=== PATIENT | female | born 1985 | race Caucasian/White ===

== ENCOUNTER 2016-08-13 22:02 | Inpatient (IN) ==
[2016-08-13] MEDS ORDERED: TORADOL IV ONE (22:26)
[2016-08-13] MEDS ORDERED: NS 1,000 ML IV ONE ×2 (22:26→23:21)
[2016-08-13] MEDS ORDERED: DILAUDID IV ONE (22:27)
[2016-08-13] MEDS ORDERED: ZOFRAN IV ONE (22:27)
[2016-08-13 22:54] LABS: MANUAL DIFF NEEDED? NO
[2016-08-13 22:54] LABS: BILIRUBIN URINE NEGATIVE (NEGATIVE); BLOOD URINE 1+ (NEGATIVE); GLUCOSE URINE NEGATIVE (NEGATIVE); LEUKOCYTES URINE 1+ (NEGATIVE); NITRITE URINE NEGATIVE (NEGATIVE); PH URINE 6.5; PROTEIN URINE NEGATIVE (NEGATIVE); SP GRAVITY URINE 1.015; UROBILINOGEN URINE NORMAL
[2016-08-13 22:55] LABS: CLARITY CLEAR (CLEAR); COLOR YELLOW
[2016-08-13 22:57] LABS: BASO% 0.2 % (0.0-0.8); EOS# 0.04 X1000 (0.0-0.7); EOS% 0.3 % (0.0-10.0); HEMATOCRIT 37.3 % (37.0-47.0); HEMOGLOBIN 12.9 g/dL (12.0-16.0); IMM GRAN# 0.04 X1000 (0.0-0.04); IMM GRAN% 0.3 % (0.0-0.5); LYMPH# 1.51 X1000 (1.2-3.4); LYMPH% 10.4 % (20.5-51.1); MCH 29.5 PG (27-31); MCHC 34.6 g/dL (33-37); MCV 85.2 FL (81-99); MONO# 1.61 X1000 (0.11-0.59); MONO% 11.1 % (1.7-9.3); MPV 9.3 FL (7.4-10.4); NEUT% 77.7 % (42.2-75.2); PLT 318 X1000 (130-400); RBC 4.38 XMIL (4.2-5.4)
[2016-08-13 23:13] LABS: AGAP 17; ALBUMIN 4.3 g/dL (3.5-5.0); ALKALINE PHOSPHATASE 58 U/L (32-104); BUN 11 mg/dL (8-22); CALCIUM 9.1 mg/dL (8.8-10.2); CHLORIDE 96 mmol/L (98-107); COSMO 268; GOT 12 U/L (10-30); GPT 12 U/L (10-36); POTASSIUM 3.7 mmol/L (3.5-5.1); SODIUM 134 mmol/L (136-145); TCO2 21 mmol/L (25-35)
[2016-08-13] MEDS ORDERED: ROCEPHIN 1 GM/NS 1 GM/50 ML IVPB IV ONE (23:17)
[2016-08-13 23:18] LABS: URINE WBC 20-40 /HPF (<10)
[2016-08-13 23:19] LABS: URINE CULTURE PL NEEDED? YES; URINE EPITHELIAL CELLS <10 /HPF (<10); URINE SOURCE CLEAN CATCH
[2016-08-13] MEDS ORDERED: TYLENOL PO ONE (23:28)
--- NOTE | 2016-08-13 23:28 | PROVIDER DOCUMENTATION ---
This chart was entered by Brittney Martínez Scribe, acting as scribe for Yunier Padilla MD. HPI-General Adult - General Chief Complaint: Flank Pain Stated Complaint: FLANK PAIN Time Seen by Provider: 08/13/16 22:16 Source: patient Allergies/Adverse Reactions: Patient Allergies Allergy/AdvReac Type Severity Reaction Status Date / Time No Known Allergies Allergy Verified 07/07/15 19:38 Home Medications: Home Medication List Medication Instructions Recorded Confirmed Last Taken Type NK [No Home Medications] 08/13/16 08/13/16 Unknown History - History of Present Illness -Gen Adult Nature of Presenting Problems: 30 Y/O F presents to ED with flank pain. Pt states she recently had an UTI at the beginning of the month and pain returned 4 days ago. Pt states that she has had flank pain for about 4 days with an headache radiating into her right ears. Pt states she had a fever onset today and Lower ABD pain on her right side. Location of Pain/Injury: reports: head, other (flank pain) Pain Radiation: reports: no radiation Quality of Pain: reports: aching Severity: reports: moderate Onset/Duration: reports: 4 days ago Timing: reports: still present Associated Symptoms: reports: back/neck pain, dizziness, EENT symptoms, fever/ chills. denies: sinus congestion/drainage, nausea, vomiting Similar Symptoms Previously?: Yes Recently seen or treated by another doctor?: Yes Review of Systems - Adult - REVIEW OF SYSTEMS - ADULT Constitutional: reports: fever. denies: chills Eyes: reports: no symptoms reported Ears, Nose, Mouth & Throat: reports: ear pain. denies: loose teeth, mouth/ dental pain Cardiovascular: reports: no symptoms reported Respiratory: denies: cough, shortness of breath Gastrointestinal: reports: abdominal pain. denies: diarrhea, nausea, vomiting Genitourinary: reports: flank pain Musculoskeletal: reports: no symptoms reported Integumentary: reports: no symptoms reported Neurological: reports: headache/migraines. denies: dizziness/vertigo, loss of balance Psychiatric: reports: no symptoms reported Endocrine: reports: no symptoms reported Hematologic/Lymphatic: reports: no symptoms reported Allergic/Immunologic: reports: no symptoms reported All Other Systems: Reviewed and Negative Past History - Adult - PAST MEDICAL HISTORY-ADULT Review of Records: reports: Old Records Reviewed, Nursing Assessment Review, Medications Reviewed, Social history reviewed & non-contributory. Major Childhood Illnesses: reports: denies history Obstetrical/Gynecological: reports: ectopic (hx 1 year after BTL) Genitourinary: reports: chronic UTI's - PRIOR SURGERIES/PROCEDURES Surgical/Procedure History: reports: BTL, tonsillectomy - IMMUNIZATION STATUS Childhood Immunizations: See Nurse Assessment Flu Vaccine: See Nurse Assessment - FAMILY HISTORY Family History: reviewed, not pertinent Physical Exam-General - CONSTITUTIONAL General Appearance: alert, mild distress - EYES Eyes: PERRL/EOMI, pink conjunctivae, anisocoria - HEAD, EARS, NOSE, MOUTH & THROAT HENMT: normocephalic/atraumatic, moist mucous membranes, normal ENT inspection, TMs normal, pharynx normal - NECK Neck: non-tender, full range of motion, supple, normal inspection - RESPIRATORY Respiratory: lungs clear, normal breath sounds - CARDIOVASCULAR Cardiovascular: normal peripheral pulses, regular rate, rhythm - GASTROINTESTINAL (ABDOMEN) Abdominal Exam: tenderness (right sided suprapubic pain) - LYMPHATIC Lymphatic: no adenopathy - MUSCULOSKELETAL Back Exam: CVA tenderness (left side) Extremity: normal range of motion, non-tender, normal gait - SKIN Integumentary: normal color, normal turgor, warm/dry - NEUROLOGIC Neurologic: grossly normal - PSYCHIATRIC Psych/Mental Status: normal mood/affect, normal thought content, normal thought process, oriented x 3 Progress - PLAN OF CARE/RESULTS Progress/Plan/Lab Results: Vital Signs - 8 hr 08/13/16 22:11 Temperature 102.4 F H Pulse Rate 115 H Respiratory Rate 20 Blood Pressure 130/69 O2 Sat by Pulse Oximetry 100 Orders Category Date Time Status URINALYSIS PL W/POSS RFLX CULT [URINALYSIS] Stat Lab 08/13/16 22:17 Ordered Result Diagrams: 08/13/16 22:48 08/13/16 22:48 - CT/MRI 1 CT Study: Abdomen, Pelvis Impression: Abnormal CT Results: Kidney stone, hydroureter - CONSULTS/PCP/HOSPITALIST Notification #1 *Consult/PCP/Hospitalist*: Time Discussed: 23:20 Reason/Comments: Plan of Care Consult Disposition: Admit (Discussed care, will see in morning) #2 Consult: Dr. Dudley Time Discussed: 23:29 Reason/Comments: Admit to [facility] Consult Disposition: Admit Departure - Departure Time of Disposition Decision: 23:27 DIAGNOSIS: Pyelonephritis, Ureterolithiasis Disposition: ADMITTED INPATIENT 09 Certified Medical Emergency: Emergent Condition: Fair Referrals and Follow-Ups: None,PCP [Primary Care Provider] - - Critical Care Note This patient required my direct & personal management of CC.: No This chart was documented by the indicated scribe, (Brittney Martínez Scribe) and accurately reflects the services I performed and decisions made by me, Yunier Padilla MD, as attested by the provider's signature.
[2016-08-13] MEDS ORDERED: TYLENOL PO PRN (23:30)
[2016-08-13] MEDS ORDERED: ZOFRAN IV PRN (23:30)
[2016-08-13] MEDS ORDERED: TYLENOL ONE (23:37)
[2016-08-14] MEDS ORDERED: DILAUDID IV ONE (00:11)
[2016-08-14] MEDS: DILAUDID IV PRN ×3 (03:19→08:08)
[2016-08-14] MEDS ORDERED: NS 1,000 ML IV SCH ×3 (06:26→13:30)
--- NOTE | 2016-08-14 07:10 | HISTORY AND PHYSICAL ---
CHIEF COMPLAINT: Left flank pain. HISTORY OF PRESENTING ILLNESS: This is a 30-year-old female without any significant past medical history who presented to our emergency department at [place] with a 1-week history of having left flank pain. The patient states over the past few days, she had some fever also. She was evaluated in the ER. She had imaging done there which did show a left ureteral stone with left hydronephrosis. Due to her presenting symptoms, she was transferred to [facility] due to lack of subspecialty care there. At the time of my examination, she denied any headaches, vision changes, chest pain, shortness of breath, hemoptysis, melena, or weight changes but complained of nausea and having left flank pain. PAST MEDICAL HISTORY: None. PAST SURGICAL HISTORY: None. ALLERGIES: No known drug allergies. CURRENT MEDICATIONS: None. SOCIAL HISTORY: No history of smoking, alcohol, or illicit drug use. FAMILY HISTORY: No history of coronary disease. REVIEW OF SYSTEMS: Twelve point review of systems as listed in the HPI. Other systems negative. PHYSICAL EXAMINATION: GENERAL: Cooperative, friendly female. She is resting comfortably now. VITAL SIGNS: Temperature 98.5 degrees, pulse 90, respirations 16, blood pressure 130/58, she is saturating 99%. HEENT: Atraumatic, normocephalic. Extraocular movements intact. PERRLA. NECK: Supple. CHEST: Clear to auscultation. CARDIOVASCULAR: Regular rate and rhythm. ABDOMEN: Soft. There is left flank tenderness. EXTREMITIES: No edema. NEUROLOGIC: She is awake, alert, oriented x3. : No bladder distention. SKIN: Warm. LABORATORIES AND STUDIES: WBCs 14.45, hemoglobin 12.9, hematocrit 37.3, platelets 318,000. Sodium 134, potassium 2.7, chloride 96, CO2 is 21, BUN is 11, creatinine 0.5, glucose is 110. ASSESSMENT: A 30-year-old female who had presented initially to [facility] with left flank pain. She was found to have a left ureteral stone with hydronephrosis. She was transferred to [facility] due to lack of subspecialty care there. Left ureteral stone with left hydronephrosis. PLAN: 1. We will admit patient to medical floor. 2. We will keep the patient NPO. I gave her adequate IV fluids, antiemetics, and pain control. 3. We will start patient on IV antibiotics. 4. We will consult urology. 5. Put patient on DVT prophylaxis with SCDs. 6. We will continue to follow and reassess. cc: Ok Dudley MD
[2016-08-14] MEDS ORDERED: NS 1,000 ML IV ONE (07:35)
[2016-08-14] MEDS ORDERED: XYLOCAINE 2% JELLY UROJECT ONE (08:39)
--- NOTE | 2016-08-14 08:59 | Diag Imaging Result Doc PS360 ---
EXAM: ABDOMEN/PELVIS W/O CONTRAST HISTORY: left flank/LLQ pain w/fever TECHNIQUE: Dose reduction protocol COMPARISON: None. FINDINGS: Normal spleen and adrenal glands. Normal noncontrasted pancreas and liver. No inflammation about the gallbladder. Normal aorta. No renal stones. No right-sided hydronephrosis. There is mild to moderate left-sided hydronephrosis secondary to a 5 mm distal left ureteral stone. This is located approximately 2 cm from the ureterovesical junction. No bowel obstruction. No inflammation about the cecum. No abscess. No free air. There are small ovarian cysts with trace fluid in the pelvis. Normal uterus. The urinary bladder is only mildly distended and appears normal. IMPRESSION: 1.There is a 5 mm stone distal left ureter with mild to moderate hydronephrosis 2.Small ovarian cysts with trace fluid in the pelvis 3.A preliminary report was given at 11:43 PM Electronically signed by Hitesh Moody 08/14/2016 8:56 AM
[2016-08-14] MEDS ORDERED: RAPAFLO PO SCH (09:00)
[2016-08-14] MEDS ORDERED: MORPHINE ONE (09:50)
[2016-08-14] MEDS ORDERED: MORPHINE IV PRN (10:30)
[2016-08-14] MEDS ORDERED: NORCO-7.5 PO PRN (14:06)
[2016-08-14 15:30] VITALS: BP 109/74
[2016-08-14] MEDS ORDERED: COLACE PO SCH (21:00)
[2016-08-14] MEDS ORDERED: PERIDEX MT SCH (21:00)
--- NOTE | 2016-08-14 21:49 | DISCHARGE SUMMARY ---
ADMISSION DATE: 08/14/2016 DISCHARGE DATE: 08/14/2016 DISPOSITION: Is home. FOLLOWUP: Will be with Dr. Enamorado. CONSULTATION DURING THIS ADMISSION: Urology was consulted. Patient was seen by Dr. Enamorado. INVASIVE PROCEDURES: Cystoscopy with ureteroscopy, lithotripsy with stone extraction and placement of J-stent in the left ureter was done by Dr. Enamorado today. IMAGING STUDIES OF SIGNIFICANCE: A CT scan of the abdomen and pelvis did show a 5 mm stone distal left ureter with mild to moderate hydronephrosis. ADMISSION DIAGNOSES: Left ureter stone with left hydronephrosis. DISCHARGE DIAGNOSIS: 1. Sepsis. 2. Left ureter stone with hydronephrosis. 3. Possible left pyelonephritis. 4. Mild obesity with a body mass index of 29.7. DISCHARGE MEDICATIONS: 1. Docusate 100 mg b.i.d. 2. Levofloxacin 500 mg daily. 3. Silodosin 8 mg p.o. daily. 4. [place] 7.5 q.6 p.r.n. PRESENTING COMPLAINT: Left flank pain. HISTORY OF PRESENTING COMPLAINT: Ms Franco 31-year-old female with no significant past medical history presented to [place] with a 1-week history of left flank pain. The patient was evaluated. CT scan did show a left ureter stone with hydronephrosis and it was deemed reasonable to transfer her here for further medical care. HOSPITAL COURSE: The patient was admitted, was kept NPO, placed on IV hydration, antibiotics and Urology was consulted. Patient was seen by Dr. Enamorado today, urological procedure was done and the stent was placed. Patient is feeling a whole lot better. From urology standpoint they think the patient could go home with a follow up appointment with them within 1 week. Today this time Ms. Franco referred to be doing a whole lot better. According to her, the flank pain has significantly improved since the procedure, no vomiting and no any hematuria. She is therefore going to be discharged on 7 day course of levofloxacin antibiotic, some pain medication, [place] to improve on the urethral to mitigate against urethral contractions and she will follow up with Dr. Enamorado as stated above. VITALS: Blood pressure is 103/69, pulse is 99, temperature is 98.1 degrees, of course of note patient came in with a temperature of 102.4 degrees. TIME SPENT FOR DISCHARGE: Is 36 minutes. cc: Marco Gil MD
[2016-08-14] MEDS ORDERED: ROCEPHIN 1 GM/NS 1 GM/50 ML IVPB IV SCH (23:00)
[2016-08-15] MEDS ORDERED: LEVAQUIN PO SCH (09:00)
[2016-08-16] MEDS ORDERED: LR 1,000 ML ONE (08:53)
[2016-08-16] MEDS ORDERED: XYLOCAINE-MPF 2% ONE (08:53)
[2016-08-16] MEDS ORDERED: DECADRON ONE (08:53)
[2016-08-16] MEDS ORDERED: ZOFRAN ONE (08:53)
[2016-08-16] MEDS ORDERED: TORADOL ONE (08:53)
--- NOTE | 2016-08-16 20:13 | OPERATIVE NOTE ---
PROCEDURE DATE: 08/14/2016 AGE: 30 years of age. PREOPERATIVE DIAGNOSIS: Acute pyelonephritis with obstructing distal ureteral calculus, hydronephrosis and flank pain. POSTOPERATIVE DIAGNOSIS: Acute pyelonephritis with obstructing distal ureteral calculus, hydronephrosis and flank pain. PROCEDURE: 1. Cystoscopy with left ureterostomy with laser lithotripsy and stone removal. 2. Placement of a double-J stent under fluoroscopic control. SURGEONS: Nando Enamorado DO INTERLOCKING MACHINE OPERATOR STAFF: The OR staff. ANESTHESIA: General, postop 2% lidocaine gel. FINDINGS: Are as per the diagnosis and the dictation. COMPLICATIONS: None. BLOOD LOSS: Hematuria. SPECIMEN REMOVED: Stone. DRAINS: Included a double-J stent. COURSE OF PROCEDURE: Patient placed in dorsal lithotomy position. Antibiotics were previously as on board/Rocephin and time-out procedure being performed, urethral cystoscopy followed. Bladder viewed in its entirety showed no trabeculations, ulcerations or polyps. The urethra and bladder neck coapted normally in front of the passed scope. Left ureteral orifice was identified. At this point an 0.[address] wire was inserted by way of a ureteroscope. The wire was used as a filiform. The distal ureter was negotiated. Stone was identified and pulverized with a 375 micron fiber and extracted piecemeal with a 4 wire stone basket into the urinary bladder. Wire was left in place, back fed onto cystoscope over which was placed a 4.8-Tamazight x 22-30 cm double J stent. Once positioned pressure was applied while removing complete curls in the urinary bladder and in the kidney. Repositioning of the stent was required briefly in order to better position that stent and a curl was placed in the upper pole kidney at that point. Once the stent was in proper position and confirmatory films taken the stone was fished out of the urinary bladder with the aid of a grasper, appeared somewhat like a struvite stone, was sent to the pathologist to be evaluated for crystallographic analysis. The patient tolerated the procedure well. Lidocaine Uro- jet was instilled in urethra after draining it of its contents. Patient was awakened and sent to recovery stable. Having sent the patient to recovery stable family is advised of the favorable outcome and the patient will be managed and discharged by the hospitalist, go home on hydrocodone/APAP 7.5/325 mg 1 every 6 hours as needed pain. Remainder the medications/balance of medications will be provided by the hospitalist. cc: Nando Enamorado DO
--- NOTE | 2016-08-17 11:34 | Diag Imaging Result Doc PS360 ---
EXAM: FLUROSCOPY CYSTO HISTORY: DISTAL L STONE TECHNIQUE: 16 fluoroscopic films submitted COMPARISON: None. FINDINGS: Early film shows placement of a wire within the left ureter. A ureteral stent was placed over the wire and wire was removed. Stent was then repositioned. IMPRESSION: Left ureteral stent placed Electronically signed by Hitesh Moody 08/17/2016 11:32 AM
== END 2016-08-14 17:19 | disposition home or self-care (01) ==
LOC: P.ED 22:02 → SUATTDRO 08-14 00:42 → 4N 08-14 00:42
PROVIDERS: ATTEND Internal Medicine